=== PATIENT | male | born 1990 | race African-American/Black ===

== ENCOUNTER 2017-03-22 13:13 | Emergency (ER) | payer BC, OTHER ==
[~2017-03-22] VITALS: Ht 177.8 cm; Wt 75.0 kg
[~2017-03-22 13:13] MED LIST: Z.0.NO CURRENT MEDS
[2017-03-22 13:14] VITALS: BP 138/78; PULSE 89; RESP 20; TEMP 98.3; O2SAT 99
--- NOTE | 2017-03-22 13:27 | PD ---
Physical Exam Date Seen by Provider: Mar 22, 2017 Time Seen by Provider: 13:24 Narrative Pt c/o abdominal pain, leg weakness, fatigue. Symptoms started yesterday. He reports the pain is an 8/10. Pt reports left testicle pain. Pain is exacerbated with ambulation. Pt denies any discharge or dysuria. Pt denies any PMHx. Data Data Last Documented VS Vital Signs Date Time Temp Pulse Resp B/P Pulse Ox O2 Delivery O2 Flow Rate FiO2 03/22/17 13:14 98.3 89 20 138/78 99 MDM Supervised Visit with AMISH: Janae Penny Mar 22, 2017 13:27
--- NOTE | 2017-03-22 14:06 | PD ---
HPI Chief Complaint: Abdominal Pain Time Seen by Provider: 14:05 Travel History International Travel<30 days: No Contact w/Intl Traveler<30days: No Traveled to known affect area: No History of Present Illness HPI 27-year-old male presents to the emergency department for evaluation of generalized weakness, body aches that started yesterday. He also states that he may have run a fever yesterday, but is unsure. He states that he feels weak all over. Patient denies any abdominal pain. He reports nausea, no vomiting. He has no chronic medical problems and takes no prescribed medications. Patient denies any cough or congestion. He told triage that he had left testicular pain, but he states that he is unsure of his testicle or his thigh that hurt him. Patient denies any other complaints at this time. [facility] Past Medical History Pneumonia: Yes (2003) Influenza Vaccination: No ?: Not Social History Alcohol Use: Yes (PT DRANK 32 OZ BEER TONIGHT. STATES HE DRINKS SOCIALLY.) Tobacco Use: Yes (0.5 ppd) Substance Use: Yes (marijuana) Allergies-Medications (Allergen,Severity, Reaction): Coded Allergies: No Known Allergies (Verified , 03/22/17) Reported Meds & Prescriptions Reported Meds & Active Scripts Active Reported No Current Meds (Miscellaneous Medication) Misc Review of Systems Except as stated in HPI: all other systems reviewed are Neg Physical Exam Narrative GENERAL: Well-nourished, well-developed male patient, ambulatory. Afebrile. SKIN: Focused skin assessment warm/dry. HEAD: Normocephalic. Atraumatic. ENT: Mucosa pink and moist. No erythema or exudates. No uvular edema. No uvular , palatal, or tonsillar deviation. Airway patent. Nasal turbinates appear normal without nasal blood, purulent drainage or septal hematoma. EYES: No scleral icterus. No injection or drainage. NECK: Supple, trachea midline. No JVD or lymphadenopathy. CARDIOVASCULAR: Regular rate and rhythm without murmurs, gallops, or rubs. RESPIRATORY: Breath sounds equal bilaterally. No accessory muscle use. Lungs sounds clear to auscultation. GASTROINTESTINAL: Abdomen soft, non-tender, nondistended. MUSCULOSKELETAL: No cyanosis, or edema. GENITOURINARY: Circumcised. Testes descended bilaterally without evidence of rotation. No lesions or erythema. No urethral discharge. No testicular pain or swelling upon palpation. This exam was done with nurse, Diaz, at bedside. Data Data Last Documented VS Vital Signs Date Time Temp Pulse Resp B/P Pulse Ox O2 Delivery O2 Flow Rate FiO2 03/22/17 14:37 93 18 145/65 99 Room Air 03/22/17 13:14 98.3 Orders Complete Blood Count With Diff (03/22/17 14:04) Comprehensive Metabolic Panel (03/22/17 14:04) Urinalysis - C+S If Indicated (03/22/17 14:04) Influenzae A/B Antigen (03/22/17 14:04) Creatine Kinase (Cpk) (03/22/17 14:04) Sodium Chlor 0.9% 1000 Ml Inj (Ns 1000 M (03/22/17 14:30) Chest, Single Ap (03/22/17 ) Blood Culture (03/22/17 15:05) Labs Laboratory Tests Test 03/22/17 14:16 White Blood Count 23.1 TH/MM3 Red Blood Count 4.07 MIL/MM3 Hemoglobin 14.0 GM/DL Hematocrit 40.6 % Mean Corpuscular Volume 99.7 FL Mean Corpuscular Hemoglobin 34.4 PG Mean Corpuscular Hemoglobin 34.4 % Concent Red Cell Distribution Width 12.0 % Platelet Count 287 TH/MM3 Mean Platelet Volume 8.2 FL Neutrophils (%) (Auto) 89.2 % Lymphocytes (%) (Auto) 2.3 % Monocytes (%) (Auto) 8.0 % Eosinophils (%) (Auto) 0.1 % Basophils (%) (Auto) 0.4 % Neutrophils # (Auto) 20.7 TH/MM3 Lymphocytes # (Auto) 0.5 TH/MM3 Monocytes # (Auto) 1.8 TH/MM3 Eosinophils # (Auto) 0.0 TH/MM3 Basophils # (Auto) 0.1 TH/MM3 CBC Comment DIFF FINAL Differential Comment Urine Color YELLOW Urine Turbidity CLEAR Urine pH 8.5 Urine Specific [place] 1.020 Urine Protein 30 mg/dL Urine Glucose (UA) NEG mg/dL Urine Ketones NEG mg/dL Urine Occult Blood NEG Urine Nitrite NEG Urine Bilirubin NEG Urine Urobilinogen 4.0 MG/DL Urine Leukocyte Esterase NEG Urine RBC 1 /hpf Urine WBC 1 /hpf Microscopic Urinalysis Comment CULT NOT INDICATED Sodium Level 132 MEQ/L Potassium Level 4.3 MEQ/L Chloride Level 100 MEQ/L Carbon Dioxide Level 20.5 MEQ/L Anion Gap 12 MEQ/L Blood Urea Nitrogen 10 MG/DL Creatinine 1.22 MG/DL Estimat Glomerular Filtration 85 ML/MIN Rate Random Glucose 98 MG/DL Calcium Level 9.0 MG/DL Total Bilirubin 1.2 MG/DL Aspartate Amino Transf 26 U/L (AST/SGOT) Alanine Aminotransferase 32 U/L (ALT/SGPT) Alkaline Phosphatase 103 U/L Total Creatine Kinase 207 U/L Total Protein 7.7 GM/DL Albumin 3.7 GM/DL [facility] Medical Decision Making Medical Screen Exam Complete: Yes Emergency Medical Condition: Yes Medical Record Reviewed: Yes Interpretation(s) chest x-ray - CONCLUSION: No acute cardiopulmonary abnormality is identified. Differential Diagnosis Influenza versus viral syndrome versus electrolyte abnormality versus dehydration Narrative Course 27-year-old male presents to the emergency department for evaluation of generalized weakness, body, possible fever. Patient does appear well on exam. Patient has no abdominal pain or testicular pain on exam. CBC, CMP, influenza, CK, UA are ordered and pending. Patient is given normal saline 1 L IV bolus. Chest x-ray is ordered and pending. CBC shows leukocytosis 23.1. CMP shows no acute abnormality. CK is 207. Influenza is negative. UA is negative for infection. Chest x-ray shows no acute cardiopulmonary abnormality. I reexamined patient, he states he feels much better. He has no abdominal pain to palpation. He does appear well on exam. He denies any history of IVDU. No medical co-morbidities. Blood cultures x2 are ordered due to leukocytosis. Symptoms are consistent with viral syndrome. My attending physician, Dr. Acevedo, who also examined patient agrees with plan and disposition. Patient is stable for discharge. He is to return for any acute, worsening of symptoms. Patient is instructed to follow up with his primary care physician after he is feeling better to have WBC rechecked to rule out leukemia. Diagnosis Primary Impression: Viral syndrome Referrals: Primary Care Physician call for appointment Patient Instructions: General Instructions, Viral Syndrome (ED) Additional Instructions: Follow-up with your primary care physician after you are feeling better to have lab work rechecked. Return to the emergency department for any acute worsening of symptoms. Med/Other Pt SpecificInfo: No Change to Meds Disposition: 01 DISCHARGE HOME Condition: Stable AdrianBorisAnn-Marie [employer] Mar 22, 2017 14:05
[2017-03-22] MEDS ORDERED: SODIUM CHLOR 0.9% 1000 ML INJ 1,000 ML IV ONE (14:30)
[2017-03-22 14:31] LABS: AUTOMATED NEUTROPHIL # 20.7 TH/MM3 (1.8-7.7); BASOPHIL # 0.1 TH/MM3 (0-0.2); BASOPHIL % 0.4 % (0.0-2.0); EOSINOPHIL % 0.1 % (0.0-4.0); HEMATOCRIT 40.6 % (39.0-51.0); HEMO FLAGS DIFF FINAL; LYMPH % 2.3 % (9.0-44.0); LYMPHOCYTE # 0.5 TH/MM3 (1.0-4.8); MEAN CELL VOLUME 99.7 FL (80.0-100.0); MEAN CORPUSCULAR HEMOGLOBIN 34.4 PG (27.0-34.0); MEAN CORPUSCULAR HGB CONC 34.4 % (32.0-36.0); NEUT % 89.2 % (16.0-70.0); PLATELET COUNT 287 TH/MM3 (150-450); RED BLOOD COUNT 4.07 MIL/MM3 (4.50-5.90); WHITE BLOOD COUNT 23.1 TH/MM3 (4.0-11.0)
[2017-03-22 14:37] VITALS: BP 145/65; PULSE 93; RESP 18; O2SAT 99
[2017-03-22 14:46] LABS: ANION GAP 12 MEQ/L (5-15); AST (GOT) 26 U/L (15-37); BICARBONATE 20.5 MEQ/L (21.0-32.0); BLOOD UREA NITROGEN 10 MG/DL (7-18); CHLORIDE 100 MEQ/L (98-107); GLOMERULAR FILTRATION RATE 85 ML/MIN (>89); POTASSIUM 4.3 MEQ/L (3.5-5.1); SODIUM (NA) 132 MEQ/L (136-145)
[2017-03-22 14:47] LABS: BLOOD, URINE NEG (NEG); GLUCOSE,URINE NEG (NEG); KETONE, URINE NEG (NEG); NITRITE,URINE NEG (NEG); PH, URINE 8.5 (5.0-8.5); URINE COLOR YELLOW (YELLW/STRAW)
[2017-03-22 14:50] LABS: ALKALINE PHOSPHATASE 103 U/L (45-117); ALT (GPT) 32 U/L (12-78); COMMENT (UR) CULT NOT INDICATED; CREATINE KINASE 207 U/L (39-308); CULTURE IF INDICATED CULT NOT INDICATED; TOTAL BILIRUBIN ADULT 1.2 MG/DL (0.2-1.0)
--- NOTE | 2017-03-22 15:19 | RADRPT ---
EXAM DATE/TIME: 03/22/2017 14:53 [place] COMPARISON: No previous studies available for comparison. INDICATIONS : Short of breath, dizzy, fever MEDICAL HISTORY : None. SURGICAL HISTORY : None. ENCOUNTER: Initial ACUITY: 2 days PAIN SCORE: 0/10 LOCATION: Bilateral chest FINDINGS: Portable AP view of the chest demonstrates a normal-sized cardiac silhouette. No effusion, consolidat ion, or pneumothorax is visualized. The bones and soft tissues demonstrate no acute abnormality. CONCLUSION: No acute cardiopulmonary abnormality is identified. Diaz Acevedo MD on March 22, 2017 at 15:16 Board Certified Radiologist. This report was verified electronically.
--- NOTE | 2017-03-22 15:29 | PD ---
Data Data Last Documented VS Vital Signs Date Time Temp Pulse Resp B/P Pulse Ox O2 Delivery O2 Flow Rate FiO2 03/22/17 14:37 93 18 145/65 99 Room Air 03/22/17 13:14 98.3 Orders Complete Blood Count With Diff (03/22/17 14:04) Comprehensive Metabolic Panel (03/22/17 14:04) Urinalysis - C+S If Indicated (03/22/17 14:04) Influenzae A/B Antigen (03/22/17 14:04) Creatine Kinase (Cpk) (03/22/17 14:04) Sodium Chlor 0.9% 1000 Ml Inj (Ns 1000 M (03/22/17 14:30) Chest, Single Ap (03/22/17 ) Blood Culture (03/22/17 15:05) Labs Laboratory Tests Test 03/22/17 14:16 White Blood Count 23.1 TH/MM3 Red Blood Count 4.07 MIL/MM3 Hemoglobin 14.0 GM/DL Hematocrit 40.6 % Mean Corpuscular Volume 99.7 FL Mean Corpuscular Hemoglobin 34.4 PG Mean Corpuscular Hemoglobin 34.4 % Concent Red Cell Distribution Width 12.0 % Platelet Count 287 TH/MM3 Mean Platelet Volume 8.2 FL Neutrophils (%) (Auto) 89.2 % Lymphocytes (%) (Auto) 2.3 % Monocytes (%) (Auto) 8.0 % Eosinophils (%) (Auto) 0.1 % Basophils (%) (Auto) 0.4 % Neutrophils # (Auto) 20.7 TH/MM3 Lymphocytes # (Auto) 0.5 TH/MM3 Monocytes # (Auto) 1.8 TH/MM3 Eosinophils # (Auto) 0.0 TH/MM3 Basophils # (Auto) 0.1 TH/MM3 CBC Comment DIFF FINAL Differential Comment Urine Color YELLOW Urine Turbidity CLEAR Urine pH 8.5 Urine Specific [place] 1.020 Urine Protein 30 mg/dL Urine Glucose (UA) NEG mg/dL Urine Ketones NEG mg/dL Urine Occult Blood NEG Urine Nitrite NEG Urine Bilirubin NEG Urine Urobilinogen 4.0 MG/DL Urine Leukocyte Esterase NEG Urine RBC 1 /hpf Urine WBC 1 /hpf Microscopic Urinalysis Comment CULT NOT INDICATED Sodium Level 132 MEQ/L Potassium Level 4.3 MEQ/L Chloride Level 100 MEQ/L Carbon Dioxide Level 20.5 MEQ/L Anion Gap 12 MEQ/L Blood Urea Nitrogen 10 MG/DL Creatinine 1.22 MG/DL Estimat Glomerular Filtration 85 ML/MIN Rate Random Glucose 98 MG/DL Calcium Level 9.0 MG/DL Total Bilirubin 1.2 MG/DL Aspartate Amino Transf 26 U/L (AST/SGOT) Alanine Aminotransferase 32 U/L (ALT/SGPT) Alkaline Phosphatase 103 U/L Total Creatine Kinase 207 U/L Total Protein 7.7 GM/DL Albumin 3.7 GM/DL [facility] Supervised Visit with AMISH: Yes Narrative Course The history, exam, and medical decision-making in the associated mid-level provider note were completed with my assistance. I reviewed and agree with the findings presented. I attest that I had a [id number] encounter with the patient on the same day, and personally performed and documented my assessment and findings in the medical record. *My assessment and Findings: So 27-year-old man who presents to the emergency Department with some nonspecific fevers chills myalgias arrive years. He does not have any real URI symptoms. He complained of some vague abdominal discomfort and especially lower abdominal and testicular discomfort. He really looks otherwise well. He was a little flushed, and his heart rate was a little high at one point. He probably has a little bit of fever. Workup is remarkable for elevated white count. Otherwise his workup is completely normal. He is an extremely benign abdominal exam. She is Gen. appearance is incredibly reassuring. He has no sick contacts. No concerning history. He otherwise had been feeling generally well and healthy. Explicitly denies IV drug use. Overall patient looks extremely well. Karina high white count could be disconcerting in the right clinical setting, and this patient looks completely well, with nonfocal exam, with no concerning medical comorbidities, I think this likely represents a viral syndrome. We did discuss findings with him, and he agrees to return for any worsening symptoms. Barak Acevedo MD Mar 22, 2017 15:29
== END 2017-03-22 15:39 | disposition home or self-care (01) ==
LOC: NEPE 13:13
DX: B34.9 Viral infection, unspecified (principal); B95.0 Streptococcus, group A, as the cause of diseases classified elsewhere
CPT/HCPCS: 71010; 80053; 81001; 82550; 85025; 87040; 87186; 87804; 99283; J7030